=== PATIENT | male | born 1980 | race Two or more races ===

== ENCOUNTER 2022-05-14 16:49 | Emergency (ER) | payer OTHER ==
[~2022-05-14] VITALS: Ht 167.6 cm; Wt 81.6 kg
[2022-05-14] MEDS ORDERED: LOSARTAN POTAS100 MG PO (18:54)
[2022-05-14] MEDS ORDERED: NIFEDIPINE ER60 M1 PO (21:25)
== END 2022-05-14 21:48 | disposition home or self-care (01) ==
LOC: ER 16:49 → EDBD 17:33 → ER 21:48
DX: I16.9 Hypertensive crisis, unspecified (principal); I10 Essential (primary) hypertension; R51.9 Headache, unspecified; Z20.822 Contact with and (suspected) exposure to COVID-19

== ENCOUNTER 2023-01-05 14:09 | Inpatient (IN) | payer OTHER ==
[~2023-01-05] VITALS: Ht 170.2 cm; Wt 81.6 kg
[~2023-01-05 14:09] MED LIST: LOSARTAN POTAS100 MG PO; NIFEDIPINE ER60 M1 PO
[2023-01-05] MEDS ORDERED: PREDNISONE20 MG (14:28)
[2023-01-05] MEDS ORDERED: ATORVASTATIN CA40 MG PO (14:28)
[2023-01-05 16:13] LABS: HEMATOCRIT 40.6 % (39.0-48.0); HEMOGLOBIN 13.4 g/dL (13-16.00); MEAN CELL VOLUME 87.1 fL (80.0-100.00); MEAN CORPUSCULAR HEMOGLOBIN 28.8 pg (27.00-32.0); MEAN CORPUSCULAR HGB CONC 33.1 g/dl (32.0-36.0); PLATELET COUNT 365 K/uL (150-450); RED BLOOD COUNT 4.66 M/uL (4.00-6.00); RED CELL DISTRIBUTION WIDTH 14.2 % (11.5-14.5)
[2023-01-05 16:38] LABS: URINE APPEARANCE Clear; URINE BILIRRUBIN Negative (NEGATIVE); URINE BLOOD Small; URINE COLOR Yellow; URINE GLUCOSE Negative (NEGATIVE); URINE LEUKOCYTE Negative; URINE NITRATE Negative; URINE UROBILINOGEN 0.2 E.U./dl
[2023-01-05 16:41] LABS: URINE RBC 7.6 uL (0.0-20.8)
[2023-01-05 16:50] LABS: URINE EPITHELIAL CELLS 0.9 uL (0.0-38.8); URINE PROTEIN 100 (NEGATIVE); URINE WBC 0.9 uL (0.0-23.2)
[2023-01-05 18:08] LABS: ALBUMIN 3.2 gm/dL (3.4-5.0); BILIRUBIN TOTAL 0.23 mg/dL (0.3-1.2); CALCIUM 9.3 mg/dL (8.5-10.1); CREATININE SERUM 2.38 mg/dL (0.70-1.30); GFR 30.43; GLOBULINA 3.6 G/DL (2.4-3.5); POTASSIUM 4.87 mEq/L (3.5-5.1); TOTAL PROTEIN 6.8 gm/dL (6.4-8.2)
[2023-01-05 19:17] LABS: ABG PH 7.437 (7.35-7.45); ABG pCO2 30.1 mmHg (35-45); BASE EXCESS -3.1 mmol/l; BICARBONATE 19.8 mmol/l (23-25); SaO2 95.8 %; Tco2 20.8 mmol/l
[2023-01-05 19:18] LABS: allen test SATISFACTORY; o2 21 %; puncture site RADIAL LEFT
[2023-01-05 21:45] LABS: INR < 0.93; PARTIAL THROMBOPLASTIN TIME 26.3 SECONDS (22.0-34.0); PROTHROMBIN TIME 9.3 SECONDS (9.0-11.5)
[2023-01-06 08:04] LABS: ALBUMIN 2.9 gm/dL (3.4-5.0); BILIRUBIN TOTAL 0.35 mg/dL (0.3-1.2); CALCIUM 8.9 mg/dL (8.5-10.1); CREATININE SERUM 1.47 mg/dL (0.70-1.30); GFR 53.06; GLOBULINA 2.7 G/DL (2.4-3.5); POTASSIUM 4.54 mEq/L (3.5-5.1); TOTAL PROTEIN 5.6 gm/dL (6.4-8.2)
[2023-01-07 12:04] LABS: ALBUMIN 2.6 gm/dL (3.4-5.0); BILIRUBIN TOTAL 0.16 mg/dL (0.3-1.2); CALCIUM 8.5 mg/dL (8.5-10.1); CREATININE SERUM 1.11 mg/dL (0.70-1.30); GFR 73.37; GLOBULINA 2.5 G/DL (2.4-3.5); POTASSIUM 3.98 mEq/L (3.5-5.1); TOTAL PROTEIN 5.1 gm/dL (6.4-8.2)
[2023-01-08] MEDS ORDERED: ZITHROMAX200 MG PO (14:21)
[2023-01-08] MEDS ORDERED: DOXAZOSIN MESYLA2 MG PO (14:21)
[2023-01-08] MEDS ORDERED: HYDROCODONE-CH115 ML PO (14:21)
[2023-01-08] MEDS ORDERED: PREDNISONE20 MG PO (14:21)
[2023-01-08] MEDS ORDERED: LOSARTAN POTAS100 MG PO (14:21)
[2023-01-08] MEDS ORDERED: NORFLEX100MG PO (14:21)
[2023-01-08] MEDS ORDERED: INTESTINEX680 M1 PO (14:21)
== END 2023-01-08 16:01 | disposition home or self-care (01) | DRG 202 ==
LOC: ER 14:09 → SURH 21:11
PROVIDERS: General Practice; Nurse Practitioner Family; ADMIT Internal Medicine; ATTEND Internal Medicine
PROC: BB24ZZZ Computerized Tomography (CT Scan) of Bilateral Lungs (ICD-10-PCS; principal; 2023-01-05)
PROC: 3E0F7GC Introduction of Other Therapeutic Substance into Respiratory Tract, Via Natural or Artificial Opening (ICD-10-PCS; 2023-01-05)
PROC: 8E0ZXY6 Isolation (ICD-10-PCS; 2023-01-06)
DX: J20.9 Acute bronchitis, unspecified (principal); J96.00 Acute respiratory failure, unspecified whether with hypoxia or hypercapnia; N17.9 Acute kidney failure, unspecified; N04.9 Nephrotic syndrome with unspecified morphologic changes; N17.8 Other acute kidney failure; Z72.0 Tobacco use

== ENCOUNTER 2024-10-07 09:51 | Inpatient (IN) | payer OTHER ==
[~2024-10-07] VITALS: Ht 170.2 cm; Wt 81.6 kg
[~2024-10-07 09:51] MED LIST changes: +ATORVASTATIN CA40 MG PO; +DOXAZOSIN MESYLA2 MG PO; +HYDROCODONE-CH115 ML PO; +INTESTINEX680 M1 PO; +NORFLEX100MG PO; +PREDNISONE20 MG; +PREDNISONE20 MG PO; +ZITHROMAX200 MG PO
[2024-10-07 10:55] LABS: BASO % 0.2 % (0.1-1.2); EOS # 0.08 (0.04-0.54); EOS % 0.4 % (0.7-7.0); LYMPH # 0.55 (1.18-3.74); LYMPH % 3.0 % (19.3-53.1); MEAN PLATELET VOLUME 9.80 fl (9.4-12.4); MONO # 0.65 (0.24-0.82); MONO % 3.5 % (4.7-12.5); NEUT # 17.07 (1.56-6.13); NEUT % 92.3 % (34.0-71.1); RED CELL DISTRIBUTION WIDTH 13.6 % (11.6-14.4)
[2024-10-07 11:21] LABS: BUN CREA RATIO 19.0 (7.0-25.0); CREATININE SERUM 1.99 mg/dL (0.70-1.30); GFR 37.04; GLUCOSE FASTING 178.0 mg/dL (65-100); OSMOLALITY SERUM 297.0 MOSM/KG (275-295)
[2024-10-07] MEDS ORDERED: FAMOTIDINE/PF 20 MG/2 ML VIAL IV SCH (12:45)
[2024-10-07] MEDS ORDERED: ACETAMINOPHEN 500 MG GEL..CAP PO PRN (12:45)
[2024-10-07] MEDS ORDERED: LACTOBACILLUS ACIDOPHILUS 1 CAP CAP PO SCH (12:45)
[2024-10-07] MEDS ORDERED: SODIUM CHLORIDE 0.45 % 1,000 ML IV SCH (12:45)
[2024-10-07] MEDS ORDERED: ENOXAPARIN SODIUM 30 MG/0.3 ML SYRINGE SUBCUTANEO SCH (12:46)
[2024-10-07 14:06] VITALS: BP 142/85
[2024-10-07 15:17] VITALS: BP 110/55; O2SAT 98
[2024-10-07 16:00] VITALS: BP 126/74; O2SAT 98
[2024-10-07] MEDS ORDERED: ATORVASTATIN CALCIUM 40 MG TABLET PO SCH (17:00)
[2024-10-07] MEDS ORDERED: MEROPENEM 500 MG/VIAL VIAL IV SCH (17:00)
[2024-10-07] MEDS ORDERED: PATIENTS OWN MEDICATION (MEDICAMENTO EN PISO) PO SCH (17:00)
[2024-10-07] MEDS ORDERED: DOXAZOSIN MESYLATE 2 MG TABLET PO SCH (21:00)
[2024-10-07] MEDS ORDERED: LINEZOLID IN DEXTROSE 5% 300 ML IV SCH (21:00)
[2024-10-08 01:31] VITALS: BP 136/80; O2SAT 100
[2024-10-08 07:59] LABS: BASO % 0.1 % (0.1-1.2); EOS # 0.14 (0.04-0.54); EOS % 1.0 % (0.7-7.0); LYMPH # 1.56 (1.18-3.74); LYMPH % 11.6 % (19.3-53.1); MEAN PLATELET VOLUME 10.40 fl (9.4-12.4); MONO # 1.13 (0.24-0.82); MONO % 8.4 % (4.7-12.5); NEUT # 10.54 (1.56-6.13); NEUT % 78.3 % (34.0-71.1); RED CELL DISTRIBUTION WIDTH 13.3 % (11.6-14.4)
[2024-10-08 08:00] VITALS: BP 144/81; O2SAT 97
[2024-10-08 08:21] LABS: ERYTHROCYTE SEDIMENTATION RATE 87 mm/hr (0-15)
[2024-10-08 08:30] LABS: INR < 0.93
[2024-10-08] MEDS ORDERED: PREDNISONE 20 MG TABLET PO SCH (09:00)
[2024-10-08] MEDS ORDERED: LOSARTAN POTASSIUM 100 MG TABLET PO SCH (09:00)
[2024-10-08 09:04] LABS: CHOL HDL RATIO 2.7 (0-5.0); HDL 48.0 mg/dl (40-60); LDL 60.0 mg/dl (0-130); PROSTATIC SPECIFIC ANTIGEN 1.44 NG/ML (0.010-4.00); VLDL 22.0 (0-39)
[2024-10-08 09:05] LABS: TSH 0.33 uIU/mL (0.358-3.74)
[2024-10-08 14:39] LABS: COVID-19 AG NEGATIVE (NEGATIVE)
[2024-10-08 16:00] VITALS: BP 130/78; O2SAT 95
[2024-10-08] MEDS ORDERED: EMOLLIENTS 6 OZ BOTTLE TOP SCH (17:00)
[2024-10-09 01:18] VITALS: BP 141/83; O2SAT 97
[2024-10-09 08:00] VITALS: BP 133/81; O2SAT 96
[2024-10-09 10:46] LABS: URINE PROT QUANT 24HR 100.0 MG/DL
[2024-10-09 11:18] LABS: URINE PROT QUANT 24 HR 2450.0 MG/24HR (42-225)
[2024-10-09 16:00] VITALS: BP 155/89; O2SAT 98
[2024-10-10 00:54] VITALS: BP 151/92; O2SAT 96
[2024-10-10 07:14] LABS: BASO % 0.1 % (0.1-1.2); EOS # 0.03 (0.04-0.54); EOS % 0.2 % (0.7-7.0); LYMPH # 2.21 (1.18-3.74); LYMPH % 15.3 % (19.3-53.1); MEAN PLATELET VOLUME 10.10 fl (9.4-12.4); MONO # 0.81 (0.24-0.82); MONO % 5.6 % (4.7-12.5); NEUT # 11.26 (1.56-6.13); NEUT % 78.2 % (34.0-71.1); RED CELL DISTRIBUTION WIDTH 13.1 % (11.6-14.4)
[2024-10-10 09:05] LABS: GLUCOSE FASTING 80.0 mg/dL (65-100)
[2024-10-10 09:06] LABS: ALT/SGPT 18.0 U/L (12-78); AST/SGOT 7.0 U/L (15-37); BILIRUBIN TOTAL 0.29 mg/dL (0.3-1.2); BUN CREA RATIO 25.0 (7.0-25.0); CREATININE SERUM 1.5 mg/dL (0.70-1.30); GFR 51.32; GLOBULINA 2.5 G/DL (2.4-3.5); OSMOLALITY SERUM 296.0 MOSM/KG (275-295)
[2024-10-10 09:42] VITALS: BP 145/91; O2SAT 99
[2024-10-10 16:00] VITALS: BP 129/83; O2SAT 97
[2024-10-11 02:03] VITALS: BP 135/81; O2SAT 100
[2024-10-11 08:00] VITALS: BP 149/91; O2SAT 98
[2024-10-11 16:00] VITALS: BP 154/92; O2SAT 97
[2024-10-11] MEDS ORDERED: LINEZOLID 600 MG TABLET PO SCH (21:00)
[2024-10-12 00:55] VITALS: BP 145/76; O2SAT 98
[2024-10-12 07:17] LABS: BASO % 0.2 % (0.1-1.2); EOS # 0.03 (0.04-0.54); EOS % 0.2 % (0.7-7.0); LYMPH # 3.10 (1.18-3.74); LYMPH % 19.4 % (19.3-53.1); MEAN PLATELET VOLUME 10.30 fl (9.4-12.4); MONO # 0.97 (0.24-0.82); MONO % 6.1 % (4.7-12.5); NEUT # 11.69 (1.56-6.13); NEUT % 73.3 % (34.0-71.1); RED CELL DISTRIBUTION WIDTH 12.8 % (11.6-14.4)
[2024-10-12 10:22] VITALS: BP 158/98; O2SAT 96
[2024-10-12 16:00] VITALS: BP 128/81; O2SAT 97
== END 2024-10-12 20:49 | disposition home or self-care (01) | DRG 603 ==
LOC: ER 09:51 → SEC-K 13:08 → SURH 13:08 → SEC-K 13:21 → SURH 15:16
PROVIDERS: General Practice; Internal Medicine; ADMIT Internal Medicine; ATTEND Internal Medicine
PROC: 8E0ZXY6 Isolation (ICD-10-PCS; principal; 2024-10-07)
PROC: B54CZZZ Ultrasonography of Left Lower Extremity Veins (ICD-10-PCS; 2024-10-07)
DX: L03.116 Cellulitis of left lower limb (principal); N17.9 Acute kidney failure, unspecified; N04.9 Nephrotic syndrome with unspecified morphologic changes; D84.821 Immunodeficiency due to drugs; E86.0 Dehydration; T38.0X5A Adverse effect of glucocorticoids and synthetic analogues, initial encounter; Z79.52 Long term (current) use of systemic steroids; Y65.8 Other specified misadventures during surgical and medical care; Z79.899 Other long term (current) drug therapy; N18.9 Chronic kidney disease, unspecified; I10 Essential (primary) hypertension; E78.5 Hyperlipidemia, unspecified; E55.9 Vitamin D deficiency, unspecified